=== PATIENT | female | born 1995 | race Caucasian/White ===

== ENCOUNTER 2023-09-20 12:32 | Outpatient (AMB) | payer OTHER, SELFPAY ==
--- NOTE | 2023-09-20 14:23 | AM.OFFWIN_ITS ---
Intake Vital Signs 09/20/23 14:25 Height 5 ft 1 in Weight 187 lb BMI 35.3 BP 120/80 Blood Pressure Location Rt brachial Position Sitting Pulse 67 Pulse Source Pulse Oximeter Temp 97.9 F Temp Source Temporal Artery Scan Pulse Oximetry (%) 98 Intake Visit Reasons: [employer] allergic reaction/sinus pressure [id number] Intake Note: pt is here for c/o sinus pressure x2 days, concern of nodules Patient Tobacco Use Status: Never used Tobacco Allergies No Known Drug Allergies Allergy (Unknown, Verified 09/20/23 15:10) UNKNOWN Medication List - Last Reconciled 09/20/23 by Zak Rosario MD No Known Home Meds Do you need a note to return to daycare/school/sports/work: Yes HPI [employer] allergic reaction/sinus pressure [id number] HPI Details Patient presents for a sick visit. Reporting symptoms of sinus congestion, sore throat and difficulty swallowing. Low-grade fever. No family member is sick. No recent travel. Patient reports symptoms of malaise and fatigue. Frequent sinus infections triggered by allergies. PFSH Social History Patient Tobacco Use Status: Never used Tobacco Physical Exam Vital Signs: Last Vital Signs Temp 97.9 F 09/20/23 14:25 Pulse 67 09/20/23 14:25 BP 120/80 09/20/23 14:25 Pulse Ox 98 09/20/23 14:25 BMI result Body Mass Index 35.3 Const General: cooperative and healthy appearing Nutritional Appearance: well nourished Orientation/consciousness: patient oriented x3 Limitations: no limitations HEENT Other: Nose: Left nostril: Possible polyp. Head: Yes normal to inspection Eyes General: appearance normal, both eyes and all related structures Neck Neck: Yes normal visual inspection Chest Chest palpation & inspection: normal palpation of entire chest wall Resp Effort & Inspection: normal respiratory effort Neuro General: patient oriented x3 Assessment & Plan Assessment & Plan (1) Nasal polyp: Code(s): J33.9 - Nasal polyp, unspecified Plan Antibiotics and Flonase called in. Patient should schedule appointment with PCP for a possible ENT appointment. Coding Level of Care Code Est Pt Level 3 (63652) Diagnoses Nasal polyp J33.9
[2023-09-20 14:25] VITALS: BP 120/80; PULSE 67; TEMP 36.6; O2SAT 98; BMI 35.3
== END 2023-09-20 15:10 | disposition home or self-care (01) ==
PROVIDERS: Visit Provider Internal Medicine
DX: J33.9 Nasal polyp, unspecified (principal)
CPT/HCPCS: 99213

== ENCOUNTER 2024-05-28 07:47 | Outpatient (REF) | payer OTHER, SELFPAY ==
--- NOTE | ~2024-05-28 | CT_ITS ---
EXAMINATION: CT SINUS WITHOUT CONTRAST CLINICAL INFORMATION: Nasal polyp. COMPARISON: None available. TECHNIQUE: Thin section multidetector-row axial CT imaging of the sinonasal cavity was done with the addition of 2 mm coronal and sagittal reformatted reconstructions. Both bone and soft tissue kernels were rendered. This CT examination was performed using dose optimization techniques as appropriate, variously including the following: *Automated exposure control *Adjustment of mA and/or kV according to patient size (this includes techniques or standardized protocols for targeted exams where dose is matched to indication/reason for exam; i.e. extremities or head) *Use of iterative reconstruction technique DLP: 116 mGy-cm FINDINGS: DENTITION: -There is a large buccal carious lesion in molar #1, which is also impacted. -A carious lesion is also noted in molar #16, buccal aspect. -There are no periapical lucencies in the maxillary or mandibular teeth. NASAL CAVITY: -There is a smooth polypoid mass in the left anterior nasal cavity just abutting the membranous nasal septum, obstructing the left middle meatus and partially obstructing the inferior meatus. This measures approximately 2.8 x 0.8 x 3.1 cm. This is consistent with a nasal polyp. -In addition, at the same level on the right, there is thickening of the right membranous nasal septum at the junction with the bony septum, measuring approximately 2.6 x 0.6 x 1.4 cm. This is narrowing the right middle meatus. This is also likely a small polyp. -The superior meati are bilaterally obstructed by mucosal thickening. -The left middle meatus more posteriorly is partially obstructed by mucosal thickening. Otherwise, the right middle meatus and bilateral inferior meati are patent. TURBINATES: -Inferior turbinates have normal morphology and demonstrate right greater than left mucosal hypertrophy. -The left middle turbinate is partially paradoxical and demonstrates extensive mucosal hypertrophy. The right middle turbinates is normal. -Superior turbinates are present but largely obscured by mucosal thickening. SEPTUM: -The nasal septum is minimally left deviated with a small bony spur which encroaches upon the left middle meatus. MAXILLARY SINUSES: -The left maxillary antrum demonstrates moderate circumferential mucosal thickening with an associated small air-fluid level dorsally. Partially pedunculated inferior orbital canal. -The right maxillary antrum demonstrates circumferential moderate mucosal thickening with an associated dependent lateral mucous retention cyst. No air-fluid level. Partially pedunculated inferior orbital canal. -Both maxillary ostia are narrowed by prominent Magdi cells, and both ostia are obstructed by mucosal thickening. On the left this communicates with the middle meatus and hiatus semilunaris. ETHMOID SINUSES: -Near completely opacified bilaterally with patchy pneumatization on the right. -The sphenoethmoidal recesses are obstructed by mucosal thickening bilaterally. FRONTAL SINUSES: -The frontal recesses are obstructed by mucosal thickening on both sides. -There is moderate polypoid mucosal thickening throughout the left frontal sinus. -The right frontal sinuses pneumatized normally with the exception of the frontal recess. SPHENOID SINUSES: The left is near completely opacified by mucosal thickening and fluid. -The right is pneumatized and dominant, with a tiny air-fluid level posteriorly and minimal mucosal thickening ventrally. -Both pterygoid recesses are pneumatized, with the left being opacified. ADDITIONAL FINDINGS: -There are type III cribriform plates. The right is slightly lower. -The right fovea ethmoidalis is slightly lower. -The anterior orbital canals are not surrounded by air. -Mastoids and tympanic cavities are normally aerated. -Mildly prominent adenoidal soft tissues are present, most certainly reactive. Imaged intracranial contents demonstrate no abnormalities. -There are no bone lesions or bony erosions. -Globes and orbital contents appear normal. -Normal facial soft tissues. CT/CT sinus wo IV con IMPRESSION: 1. Extensive pansinus disease, with relative sparing of the right frontal sinus and right sphenoid sinus. Cannot exclude nasal polyposis. Air-fluid level in the left maxillary sinus and right sphenoid sinus present, which could indicate acute sinusitis in the appropriate clinical setting. 2. All major drainage pathways are obstructed by mucosal thickening. 3. Anterior nasal cavity polyps are suspected as described, larger on the left. These result in near-complete obstruction of the left middle meatus and partial obstruction of the superior inferior meatus. 4. No regions of bony dehiscence or erosion. No orbital findings. 5. There are carious lesions in both third maxillary molars. 6. See the body of the report for additional details.
== END 2024-05-28 07:48 | disposition home or self-care (01) ==
LOC: HO.CT 07:47
PROVIDERS: PCP Internal Medicine; Visit Provider Otolaryngology
DX: J33.0 Polyp of nasal cavity (principal)
CPT/HCPCS: 70486

== ENCOUNTER → 2024-05-28 07:52 | Outpatient (BNV) | payer OTHER, SELFPAY | PROVIDERS: PCP Internal Medicine; Visit Provider Radiology Diagnostic Radiology | DX: J33.0 Polyp of nasal cavity (principal) | CPT/HCPCS: 70486 ==

== ENCOUNTER 2025-04-10 18:51 | Emergency (ER) | payer OTHER, SELFPAY ==
--- NOTE | ~2025-04-10 | CT_ITS ---
CLINICAL HISTORY: nasal polyp, L maxillary swelling CT sinuses without contrast Comparison: CT of the sinuses from 05/28 2024 Findings: Overall worsening of multifocal opacification and new opacification of the multiple paranasal sinuses, including maxillary sinuses, left frontal sinus and both sides of the sphenoid sinus. Mucosal thickening is also multifocal. Underlying polyp not excluded by noncontrast CT in keeping with reported history of the polyp. Early granulomatosis or granulomatous process also considered given multifocal outlet obstruction. Right maxillary infundibulum and left maxillary infundibulum are occluded. Frontal ethmoidal recesses are occluded. Bone resorption includes metal and superior turbinates. Bone remodeling is multifocal with developing atelectasis of the right maxillary sinus. Osseous defect of the anterior portion of the nasal septum is not significantly changed. Anterior ethmoidal arteries are exposed. Sphenoid ethmoidal recesses are occluded. No acute fracture. No dislocation of the imaged temporomandibular joints. Additional fluid includes imaged nasopharynx with mild asymmetry of the mucosa of the by CT. Imaged mastoid air cells are well aerated. IMPRESSION: 1. Worsening opacification of the paranasal sinuses as can be seen with pansinusitis. 2. Multifocal paranasal sinus outflow obstruction. This document has been electronically signed by: Yordy Ryan MD on 04/10/2025 20:16:22
[2025-04-10 19:01] VITALS: BP 155/87; PULSE 102; RESP 16; TEMP 36.6; O2SAT 97; BMI 34.6
[2025-04-10 19:37] LABS: HCG Quantitative < 2 mIU/mL
[2025-04-10 20:29] VITALS: BP 129/72; PULSE 86; RESP 16; TEMP 36.6; O2SAT 99
[2025-04-10] MEDS: Amoxicillin/Potassium Clav 875 MG TABLET PO (21:22)
--- NOTE | 2025-04-10 21:55 | ED.GENADULT ---
HPI - General Adult General Chief complaint: General Medical Stated complaint: headache, dizziness, inflamed sinuses Time Seen by Provider: 04/10/25 20:59 Source: patient Limitations: no limitations History of Present Illness ED Provider: Scarlet Hernandez PA-C HPI narrative: 29-year-old female with a history of seasonal allergies, known nasal polyps, presents with a headache x1 week. Patient states she has had severe facial pain and pressure over the past week with subsequent frontal headache. Patient states her left nasal passage is occluded, she can not breathe through that side. The nasal secretions she is expelling are yellow and green in color. Denies fever. Patient was seen at urgent care and instructed to come to the emergency department for further assessment. Related Data Previous Rx's ?Medication ?Instructions ?Recorded azithromycin 250 mg tablet See Rx Instructions PO .COMPLEX #6 09/20/23 tabs fluticasone propionate 50 1 spray intranasal DAILY #9.9 mL 09/20/23 mcg/actuation nasal spray,suspension (Flonase Allergy Relief) amoxicillin 875 mg-potassium 1 tab PO Q12H #19 tabs 04/10/25 clavulanate 125 mg tablet fluticasone propionate 50 2 spray intranasal DAILY #16 grams 04/10/25 mcg/actuation nasal spray,suspension (Flonase Allergy Relief) Allergies Allergy/AdvReac Type Severity Reaction Status Date / Time Seasonal Allergies Allergy Sneezing Verified 04/10/25 19:04 Review of Systems Review of Systems: Yes all other systems are reviewed and are negative Constitutional: Constitutional: Denies fatigue, Denies fever(s) and Reports headache(s) ENT: Denies dizziness, Reports facial pain, Reports headache(s), Reports nasal congestion, Reports nasal discharge, Reports sinus pain and Reports sinus pressure Cardiovascular: Cardiovascular: Denies dyspnea Respiratory: Respiratory: Denies chest congestion, Denies cough and Denies dyspnea Gastrointestinal: Gastrointestinal: Denies abdominal pain, Denies nausea and Denies vomiting Neurologic: Denies dizziness and Reports headache(s) Endocrine: Endocrine: Denies fatigue PMFSH Past Medical History Attestation statement: The following information was validated with the patient. Social History Social History Patient Tobacco Use Status: Never used Tobacco Smoked in Last 30 Days: Yes Use of substances other than those prescribed or required for medical reasons: Yes Substance Use Type: Marijuana Advance Directives: No Advance Directives Information Provided: No Do you have a plan to hurt others: No Plan Physical Exam ED Vital Signs: Vital Signs - 24 hr 04/10/25 19:01 04/10/25 20:29 Temperature 97.8 F 97.8 F Pulse Rate 102 H 86 Respiratory Rate 16 16 Blood Pressure 155/87 H 129/72 Pulse Oximetry 97 99 Oxygen Delivery Method Room Air Room Air BMI result Body Mass Index 34.6 Const Other: Alert well-appearing Orientation/consciousness: patient oriented x3 Resp Effort & Inspection: normal respiratory effort Cardio Other: Normal peripheral perfusion Skin Other: Warm dry no rash Neuro General: patient oriented x3, gait normal, no focal motor deficits and CN's II-XI intact bilaterally Psych Other: Cooperative Medications Administered Discontinued Medications Generic Name Dose Route Start Last Admin Trade Name Freq PRN Reason Stop Dose Admin Amoxicillin/Clavulanate Potassium 875 mg 04/10/25 21:11 04/10/25 21:22 Amoxicillin/Potassium Clav 875 Mg Tablet PO 04/10/25 21:12 875 mg ONCE ONE Administration Medical Decision Making Medical Decision Making [facility] Narrative: 29-year-old female with a history of seasonal allergies, known nasal polyps, presents with a headache x1 week. Patient states she has had severe facial pain and pressure over the past week with subsequent frontal headache. Patient states her left nasal passage is occluded, she can not breathe through that side. The nasal secretions she is expelling are yellow and green in color. Denies fever. Patient was seen at urgent care and instructed to come to the emergency department for further assessment. Problem: Seasonal allergies no nasal polyps History: Per patient I have considered the following differential diagnoses: Sinusitis, intracranial hemorrhage, sinus headache, viral syndrome Plan: CT scan obtained from triage, the patient has sinusitis, the left nasal passage is significantly occluded. She needs follow up with the ENT. She has pending appointment in June to see her primary care. We will be starting her on Augmentin and giving additional home care instructions. There was nothing about the patient to suggest intracranial hemorrhage, she is not altered, she is neurologically intact, she is not actively vomiting is not dizzy. I have independently reviewed the following tests: Labs: Not CT sinuses: IMPRESSION: 1. Worsening opacification of the paranasal sinuses as can be seen with pansinusitis. 2. Multifocal paranasal sinus outflow obstruction. Lab Data Labs: Lab Results 04/10/25 Range/Units 19:09 Beta HCG, Quant < 2 mIU/mL Discharge Plan Discharge Clinical Impression: Sinusitis Patient Disposition: Home, Self-Care Instructions: Sinusitis (ED) Additional Instructions: You are being treated for sinusitis. See home care instructions. Take the Augmentin as directed complete the course of antibiotics. This medication will cause diarrhea, take a concurrent probiotic. You should be using [id number] Mucinex, this medication will help with an your secretions. Also use [id number]-lqnyldi Zyrtec, this will help dry up the secretions. Use [id number] nasal saline sprays as often as you would like, this will help hydrate your nasal passages and flushed out the mucus. Use the Flonase as directed, this is a focal steroid, to help reduce inflammation. Keep your pending appointment with your primary care provider, they can help expedite your referral to ENT. Prescriptions: New amoxicillin-pot clavulanate 875-125 mg tablet 1 tab PO Q12H Qty: 19 0RF fluticasone propionate [Flonase Allergy Relief] 50 mcg/actuation spray,suspension 2 spray intranasal DAILY Qty: 16 0RF Rx Instructions: administer into each nostril No Action azithromycin 250 mg tablet See Rx Instructions PO .COMPLEX Qty: 6 0RF Rx Instructions: take 500 mg today (day 1), then 250 mg for 4 days (days 2-5) PO fluticasone propionate [Flonase Allergy Relief] 50 mcg/actuation spray,suspension 1 spray intranasal DAILY Qty: 9.9 1RF Rx Instructions: administer into each nostril Print Language: Slovak
[2025-04-10 22:14] VITALS: BP 129/72; PULSE 86; RESP 16; TEMP 36.6; O2SAT 99
== END 2025-04-10 22:15 | disposition home or self-care (01) ==
PROVIDERS: Physician Assistant Medical; Emergency Provider Internal Medicine; PCP Internal Medicine
DX: J32.9 Chronic sinusitis, unspecified (principal); R51.9 Headache, unspecified; Z79.899 Other long term (current) drug therapy
CPT/HCPCS: 36415; 70486; 84702; 99284

== ENCOUNTER → 2025-04-10 19:02 | Outpatient (BNV) | payer OTHER, SELFPAY | PROVIDERS: PCP Internal Medicine; Visit Provider Radiology Neuroradiology | DX: J32.8 Other chronic sinusitis (principal) | CPT/HCPCS: 70486 ==